=== PATIENT | male | born 1990 | race African-American/Black ===

== ENCOUNTER 2020-06-30 08:40 | Emergency (ER) | payer OTHER ==
[2020-06-30 08:59] VITALS: BMI 19.5
[2020-06-30] MEDS ORDERED: SODIUM CHLORIDE 0.9% 500 ML INFUS.BAG IV ONE ×2 (09:13→10:56)
[2020-06-30] MEDS ORDERED: ONDANSETRON 4 MG/2 ML VIAL IVPUSH ONE (09:13)
[2020-06-30] MEDS ORDERED: ONDANSETRON 4 MG/2 ML VIAL ONE (09:27)
[2020-06-30 10:40] LABS: PH,URINE 6.5 (5.0-8.0); URINE APPEARANCE CLEAR; URINE BILIRUBIN NEGATIVE (NEGATIVE); URINE COLOR YELLOW; URINE GLUCOSE (UA) NEGATIVE (NEGATIVE); URINE KETONE TRACE (NEGATIVE); URINE LEUK ESTERASE NEGATIVE (NEGATIVE); URINE NITRITE NEGATIVE (NEGATIVE); URINE PROTEIN TRACE (NEGATIVE)
[2020-06-30 10:43] LABS: BASO % 0.4 % (0-2.0); HEMATOCRIT 49.3 % (35.4-49); HEMOGLOBIN 16.5 GM/dL (11.7-16.9); LYMPH % 22.5 % (8-40); MCHC 33.4 g/dl (32.0-35.9); MEAN CELL VOLUME 77.8 fl (80-96); MEAN PLT VOLUME 8.5 fl (7.5-11.1); MONO % 8.7 % (3.8-10.2); NEUT % 67.4 % (42.8-82.8); PLATELET COUNT 341 K/MM3 (134-434); RBC 6.34 M/mm3 (4.00-5.60); RDW 14.7 % (11.9-15.9); WHITE BLOOD COUNT 7.6 K/mm3 (4.0-10.0)
[2020-06-30 11:00] LABS: CALCIUM 9.8 mg/dL (8.5-10.1)
[2020-06-30 11:01] LABS: ALBUMIN 4.2 g/dl (3.4-5.0); BLOOD UREA NITROGEN 18.2 mg/dL (7-18)
[2020-06-30 11:04] LABS: CREATININE 0.9 mg/dL (0.55-1.3)
[2020-06-30 11:05] LABS: TOT PROT 8.5 g/dl (6.4-8.2)
[2020-06-30 13:42] VITALS: BP 127/60; PULSE 56; TEMP 97.5
== END 2020-06-30 13:40 | disposition home or self-care (01) ==
LOC: JER 08:40
PROC: 3E033NZ Introduction of Analgesics, Hypnotics, Sedatives into Peripheral Vein, Percutaneous Approach (ICD-10-PCS; principal; 2020-06-30)
DX: K52.9 Noninfective gastroenteritis and colitis, unspecified (principal)
CPT/HCPCS: 36415; 71046-TC-FY; 80053; 81003; 83690; 85025; 87086; 96374; 99285-25; C9803; U0003; U0005

== ENCOUNTER 2022-11-16 22:04 | Emergency (ER) | payer OTHER ==
[2022-11-16 22:10] VITALS: BP 117/83; PULSE 93; RESP 18; TEMP 98.4; BMI 20.7
[2022-11-16] MEDS ORDERED: ALBUTEROL SO4 2.5/IPRATROPIUM 0.5 INH SOL 3 ML VIAL.NEB. NEB ONE ×5 (22:36→22:57)
[2022-11-16] MEDS ORDERED: DEXAMETHASONE SOD PHOSPHATE 10 MG/1 ML VIAL IM ONE (22:36)
[2022-11-16] MEDS ORDERED: DEXAMETHASONE SOD PHOSPHATE 10 MG/1 ML VIAL ONE (22:39)
[2022-11-16] MEDS ORDERED: DEXAMETHASONE 4 MG TABLET (FP) ONE (22:57)
[2022-11-16] MEDS ORDERED: DEXAMETHASONE 4 MG TABLET (FP) PO ONE (23:00)
[2022-11-16] MEDS ORDERED: ALBUTEROL SO4 HFA INHALER IH ONE (23:58)
[2022-11-17] MEDS ORDERED: ALBUTEROL SO4 HFA INHALER IH ONE (00:46)
== END 2022-11-17 01:00 | disposition home or self-care (01) ==
LOC: JER 22:04
PROC: 3E0F7GC Introduction of Other Therapeutic Substance into Respiratory Tract, Via Natural or Artificial Opening (ICD-10-PCS; principal; 2022-11-16)
PROC: 3E0F7GC Introduction of Other Therapeutic Substance into Respiratory Tract, Via Natural or Artificial Opening (ICD-10-PCS; 2022-11-16)
PROC: 3E0F7GC Introduction of Other Therapeutic Substance into Respiratory Tract, Via Natural or Artificial Opening (ICD-10-PCS; 2022-11-16)
PROC: 3E0F7GC Introduction of Other Therapeutic Substance into Respiratory Tract, Via Natural or Artificial Opening (ICD-10-PCS; 2022-11-16)
PROC: 3E023GC Introduction of Other Therapeutic Substance into Muscle, Percutaneous Approach (ICD-10-PCS; 2022-11-16)
DX: J45.901 Unspecified asthma with (acute) exacerbation (principal); R06.02 Shortness of breath
CPT/HCPCS: 99285-25; J1100